=== PATIENT | female | born 1945 | race Caucasian/White ===

== ENCOUNTER 2024-04-20 00:30 | Emergency (ER) | payer OTHER ==
[~2024-04-20] VITALS: Ht 167.6 cm; Wt 81.6 kg
[~2024-04-20 00:30] MED LIST: ECOTRIN325 M1 PO; HYZAAR 100-121 UDTAB PO
[2024-04-20] MEDS ORDERED: METFORMIN HCL500 MG (00:44)
[2024-04-20] MEDS ORDERED: ONDANSETRON HCL 2 MG/ML VIAL IV STA (01:58)
[2024-04-20] MEDS ORDERED: FAMOTIDINE/PF 20 MG/2 ML VIAL IV PUSH STA (01:59)
[2024-04-20] MEDS ORDERED: LACTOBACILLUS ACIDOPHILUS 1 CAP CAP PO STA (01:59)
[2024-04-20] MEDS ORDERED: HYOSCYAMINE SULFATE 0.125 MG TAB.SUBL SL STA (01:59)
[2024-04-20] MEDS ORDERED: 0.9 % SODIUM CHLORIDE 1,000 ML IV ONE (02:00)
[2024-04-20 02:31] LABS: HEMATOCRIT 38.5 % (36.0-45.00); MEAN CELL VOLUME 91.2 fL (80.00-100.00); MEAN CORPUSCULAR HEMOGLOBIN 30.8 pg (27.00-32.0); MEAN CORPUSCULAR HGB CONC 33.8 g/dl (32.0-36.0); PLATELET COUNT 333 K/uL (150-450); RED BLOOD COUNT 4.23 M/uL (4.00-6.00); RED CELL DISTRIBUTION WIDTH 13.4 % (11.5-14.5)
[2024-04-20 02:52] LABS: CREATININE SERUM 0.62 mg/dL (0.55-1.02); GFR 92.62; POTASSIUM 3.59 mEq/L (3.5-5.1)
[2024-04-20] MEDS ORDERED: DIPHENOXYLATE HCL/ATROPINE 1 UDTAB TABLET PO ONE (10:15)
== END 2024-04-20 11:26 | disposition home or self-care (01) ==
LOC: ER 00:30
PROVIDERS: General Practice
DX: Z90.49 Acquired absence of other specified parts of digestive tract (principal); R11.10 Vomiting, unspecified; R19.7 Diarrhea, unspecified; I10 Essential (primary) hypertension; E11.9 Type 2 diabetes mellitus without complications; Z79.84 Long term (current) use of oral hypoglycemic drugs; Z88.2 Allergy status to sulfonamides
CPT/HCPCS: 36415; 96365; 96366; 99282; J2405; J3490; J7030

== ENCOUNTER 2024-07-22 06:52 | Inpatient (IN) | payer OTHER ==
[~2024-07-22] VITALS: Ht 157.5 cm; Wt 52.2 kg
[~2024-07-22 06:52] MED LIST changes: +METFORMIN HCL500 MG
--- NOTE | 2024-07-22 07:06 | NUR ---
SE RECIBE PTE EN AMBULANCIA ALERTA Y ACTIVA EN COMPANIA DE PARAMEDICOS Y FAMILIAR. REFIEREN TRAER A PTE POR QUE ESTA HIPOACTIVA E HIPOTENSA. TAMBIEN REFIEREN DEBILIDAD. AL MOMENTO DE TRIAGE BP 120/50 MMHG. SE REALIZA EKG, DXT SE PRESENTAA . SE ALLAN SV Y SE UBICA .
[2024-07-22] MEDS ORDERED: 0.9 % SODIUM CHLORIDE 500 ML IV ONE (08:15)
--- NOTE | 2024-07-22 08:56 | NUR ---
SE LE ORIENTA A PACIENTE SOBRE LA ORDEN MEDICA, REFIERE ENTENDER LAS MISMAS. SE CANALIZA Y SE LE COLOCA EL IVF'S, SE LE TOMNA LAS MUETRAS Y SE LE ADMINISTRAN LOS MEDICAMENTOSS EHUN LA ORDEN MEDICA.
[2024-07-22 09:02] LABS: MEAN CELL VOLUME 86.2 fL (80.00-100.00); MEAN CORPUSCULAR HGB CONC 32.6 g/dl (32.0-36.0); PLATELET COUNT 522 K/uL (150-450); RED BLOOD COUNT 2.66 M/uL (4.00-6.00)
[2024-07-22 09:17] LABS: HEMATOCRIT 22.9 % (36.0-45.00); HEMOGLOBIN 7.5 g/dL (12.0-15.00); MEAN CORPUSCULAR HEMOGLOBIN 28.1 pg (27.00-32.0); RED CELL DISTRIBUTION WIDTH 16.2 % (11.5-14.5)
[2024-07-22 09:22] LABS: PH,URINE 5.5 (5.0-8.0); URINE APPEARANCE Turbid; URINE BILIRRUBIN Negative (NEGATIVE); URINE BLOOD Moderate; URINE COLOR Dark Yellow; URINE GLUCOSE Negative (NEGATIVE); URINE KETONE Negative (NEGATIVE); URINE LEUKOCYTE Large; URINE NITRATE Positive; URINE PROTEIN 30 (NEGATIVE); URINE UROBILINOGEN 0.2 E.U./dl
[2024-07-22 09:23] LABS: URINE EPITHELIAL CELLS 6.9 uL (0.0-38.8); URINE RBC 14.5 uL (0.0-20.8)
[2024-07-22 09:27] LABS: BILIRUBIN TOTAL 0.37 mg/dL (0.3-1.2); CALCIUM 8.6 mg/dL (8.5-10.1); CREATININE SERUM 1.17 mg/dL (0.55-1.02); GFR 44.39; POTASSIUM 4.15 mEq/L (3.5-5.1)
[2024-07-22 09:39] LABS: URINE BACTERIA > 9821.5 uL (0.0-1933); URINE CAST 0.88 uL (0.0-1.40); URINE WBC > 5548.3 uL (0.0-23.2)
[2024-07-22] MEDS ORDERED: CEFTRIAXONE SODIUM 1,000 MG VIAL ONE (10:13)
[2024-07-22] MEDS ORDERED: CEFTRIAXONE SODIUM 1,000 MG VIAL IV ONE (10:15)
--- NOTE | 2024-07-22 12:29 | NUR ---
SE REQUISAN 2 UNITS DE PRBC'S PARA TRANFUNDIR, SE LE ORIENTA A PACIENTE Y SE LE ORIENTA SOBRE EL PROCESO.
[2024-07-22] MEDS ORDERED: 0.9 % SODIUM CHLORIDE 1,000 ML IV SCH ×2 (12:45→17:45)
[2024-07-22] MEDS ORDERED: DEXTROSE 50 % IN WATER 0.5 G/ML DISP.SYRIN IV PRN ×2 (12:45→14:30)
[2024-07-22] MEDS ORDERED: CEFTRIAXONE SODIUM 1,000 MG VIAL IV NR (14:30)
[2024-07-22 15:22] VITALS: BP 94/50; O2SAT 98
[2024-07-22] MEDS ORDERED: FAMOtidine 20 MG TABLET PO SCH (17:00)
[2024-07-22 17:14] VITALS: BP 90/44
[2024-07-22] MEDS ORDERED: MEROPENEM 500 MG/VIAL VIAL IV SCH (18:15)
[2024-07-22] MEDS ORDERED: NOREPINEPHRINE BITARTRATE 4 MG in DEXTROSE 5 % IN WATER 250 ML IV SCH (18:30)
[2024-07-22 20:00] VITALS: BP 94/46; O2SAT 100
[2024-07-22] MEDS ORDERED: INSULIN GLARGINE,HUM.REC.ANLOG 1,000 UNITS/10 ML UNITS SUBCUTANEO SCH (21:00)
[2024-07-22] MEDS ORDERED: VANCOMYCIN HCL 1,000 MG VIAL IV ONE (22:00)
[2024-07-22 23:41] VITALS: BP 111/47; O2SAT 100
[2024-07-23 04:20] VITALS: BP 100/42; O2SAT 99
[2024-07-23 07:21] VITALS: BP 100/61; O2SAT 100
[2024-07-23] MEDS ORDERED: CEFTRIAXONE SODIUM 1,000 MG VIAL IV SCH (09:00)
[2024-07-23] MEDS ORDERED: CEFTRIAXONE SODIUM 2,000 MG VIAL IV SCH (09:00)
[2024-07-23] MEDS ORDERED: FAMOtidine 20 MG TABLET PO SCH (09:00)
[2024-07-23 10:13] LABS: HEMATOCRIT 26.1 % (36.0-45.00); MEAN CELL VOLUME 83.4 fL (80.00-100.00); MEAN CORPUSCULAR HGB CONC 32.8 g/dl (32.0-36.0); RED BLOOD COUNT 3.12 M/uL (4.00-6.00)
[2024-07-23] MEDS ORDERED: CHLORHEXIDINE GLUCONATE 120 ML BOTTLE TOP ONE (10:26)
[2024-07-23 10:37] LABS: CALCIUM 8.3 mg/dL (8.5-10.1); CREATININE SERUM 1.12 mg/dL (0.55-1.02); GFR 46.69; POTASSIUM 4.93 mEq/L (3.5-5.1)
[2024-07-23 11:00] LABS: MEAN CORPUSCULAR HEMOGLOBIN 27.2 pg (27.00-32.0)
[2024-07-23 11:01] LABS: HEMOGLOBIN 8.5 g/dL (12.0-15.00)
[2024-07-23 11:02] LABS: PLATELET COUNT 367 K/uL (150-450); RED CELL DISTRIBUTION WIDTH 16.4 % (11.5-14.5)
[2024-07-23 12:00] VITALS: BP 103/55; O2SAT 100
[2024-07-23 13:35] LABS: HEMATOCRIT 24.8 % (36.0-45.00); MEAN CELL VOLUME 82.2 fL (80.00-100.00); MEAN CORPUSCULAR HEMOGLOBIN 26.8 pg (27.00-32.0); MEAN CORPUSCULAR HGB CONC 32.6 g/dl (32.0-36.0); PLATELET COUNT 377 K/uL (150-450); RED BLOOD COUNT 3.02 M/uL (4.00-6.00); RED CELL DISTRIBUTION WIDTH 17.2 % (11.5-14.5)
[2024-07-23 13:37] LABS: HEMOGLOBIN 8.1 g/dL (12.0-15.00)
[2024-07-23 15:51] VITALS: BP 105/53; O2SAT 100
[2024-07-23] MEDS ORDERED: CHOLESTYRAMINE/ASPARTAME LIGHT 4 G/PKT PACKET PO SCH (17:00)
[2024-07-23 20:00] VITALS: BP 102/49; O2SAT 100
[2024-07-24] VITALS (8 sets, daily range): BP systolic 115–155; BP diastolic 51–97; O2SAT 100
[2024-07-24 07:36] LABS: HEMATOCRIT 23.7 % (36.0-45.00); MEAN CELL VOLUME 81.3 fL (80.00-100.00); MEAN CORPUSCULAR HEMOGLOBIN 27.3 pg (27.00-32.0); MEAN CORPUSCULAR HGB CONC 33.6 g/dl (32.0-36.0); PLATELET COUNT 354 K/uL (150-450); RED BLOOD COUNT 2.92 M/uL (4.00-6.00); RED CELL DISTRIBUTION WIDTH 16.5 % (11.5-14.5)
[2024-07-24 08:21] LABS: CALCIUM 8.5 mg/dL (8.5-10.1); CREATININE SERUM 0.48 mg/dL (0.55-1.02); GFR 124.13; POTASSIUM 3.85 mEq/L (3.5-5.1)
[2024-07-24] MEDS ORDERED: MEROPENEM 500 MG/VIAL VIAL IV SCH (18:00)
[2024-07-25 04:00] VITALS: BP 172/78; O2SAT 100
[2024-07-25 08:10] VITALS: BP 180/73; O2SAT 100
[2024-07-25 12:09] LABS: HEMATOCRIT 28.9 % (36.0-45.00); HEMOGLOBIN 9.5 g/dL (12.0-15.00); MEAN CELL VOLUME 83.9 fL (80.00-100.00); MEAN CORPUSCULAR HEMOGLOBIN 27.6 pg (27.00-32.0); MEAN CORPUSCULAR HGB CONC 32.8 g/dl (32.0-36.0); PLATELET COUNT 324 K/uL (150-450); RED BLOOD COUNT 3.45 M/uL (4.00-6.00); RED CELL DISTRIBUTION WIDTH 16.3 % (11.5-14.5)
[2024-07-25 14:11] VITALS: BP 153/87; O2SAT 97
[2024-07-25 16:00] VITALS: BP 169/76; O2SAT 100
[2024-07-25 20:00] VITALS: BP 140/64; O2SAT 99
[2024-07-26] VITALS: BP 140/64; O2SAT 99
[2024-07-26 04:19] VITALS: BP 150/72; O2SAT 98
[2024-07-26 09:36] VITALS: BP 159/64; O2SAT 98
[2024-07-26 16:00] VITALS: BP 164/63; O2SAT 99
[2024-07-26] MEDS ORDERED: CEFTRIAXONE SODIUM 2,000 MG in 0.9 % SODIUM CHLORIDE 100 ML IV SCH (17:00)
[2024-07-26] MEDS ORDERED: ACYCLOVIR 400 MG TABLET PO SCH (17:00)
[2024-07-26 20:57] VITALS: BP 154/67; O2SAT 99
[2024-07-27] VITALS (8 sets, daily range): BP systolic 151–192; BP diastolic 69–93; O2SAT 98–100
[2024-07-27 07:07] LABS: CREATININE SERUM 0.38 mg/dL (0.55-1.02); GFR 162.54; POTASSIUM 3.04 mEq/L (3.5-5.1)
[2024-07-27 07:08] LABS: HEMATOCRIT 29.6 % (36.0-45.00); HEMOGLOBIN 10.1 g/dL (12.0-15.00); MEAN CELL VOLUME 83.2 fL (80.00-100.00); MEAN CORPUSCULAR HEMOGLOBIN 28.4 pg (27.00-32.0); MEAN CORPUSCULAR HGB CONC 34.1 g/dl (32.0-36.0); PLATELET COUNT 339 K/uL (150-450); RED BLOOD COUNT 3.56 M/uL (4.00-6.00); RED CELL DISTRIBUTION WIDTH 16.5 % (11.5-14.5)
[2024-07-27] MEDS ORDERED: POTASSIUM BICARBONATE/CIT AC 25 MEQ TABLET.EFF PO SCH (09:00)
[2024-07-27] MEDS ORDERED: CHLORHEXIDINE GLUCONATE 120 ML BOTTLE TOP ONE (10:29)
[2024-07-27] MEDS ORDERED: ENALAPRILAT DIHYDRATE 1.25 MG/ML VIAL IV STA (11:51)
[2024-07-27 12:21] LABS: ob POSITIVE (NEGATIVE)
[2024-07-27] MEDS ORDERED: LOSARTAN/HYDROCHLOROTHIAZIDE 1 TAB TABLET PO NR (12:30)
[2024-07-27] MEDS ORDERED: FUROsemide 20 MG/2 ML VIAL IV NR (13:45)
[2024-07-27] MEDS ORDERED: SODIUM CHLORIDE 0.45 % 1,000 ML IV SCH (17:15)
[2024-07-27] MEDS ORDERED: hydrALAZINE HCL 20 MG VIAL IV PRN (17:15)
[2024-07-28] VITALS: BP 177/70; O2SAT 96
[2024-07-28 05:11] VITALS: BP 153/77; O2SAT 97
[2024-07-28 07:07] LABS: CREATININE SERUM 0.3 mg/dL (0.55-1.02); GFR 213.51
[2024-07-28 07:21] LABS: POTASSIUM 2.63 mEq/L (3.5-5.1)
[2024-07-28] MEDS ORDERED: LOSARTAN/HYDROCHLOROTHIAZIDE 1 TAB TABLET PO SCH (09:00)
[2024-07-28] MEDS ORDERED: POTASSIUM CHLORIDE 20MEQ/100ML H2O PB IV SCH (09:00)
[2024-07-28] MEDS ORDERED: LOSARTAN POTASSIUM 100 MG TABLET PO SCH (09:00)
[2024-07-28] MEDS ORDERED: 0.9 % SODIUM CHLORIDE 1,000 ML IV SCH (09:15)
[2024-07-28 12:00] VITALS: BP 167/93
[2024-07-28 16:52] VITALS: BP 143/57; O2SAT 98
[2024-07-28] MEDS ORDERED: ACYCLOVIR TOP SCH (17:00)
[2024-07-28] MEDS ORDERED: MAGNESIUM SULFATE IN WATER 2 GM/50 ML PIGGYBAG IV NR (19:00)
[2024-07-29 01:57] VITALS: BP 146/77
[2024-07-29 07:04] LABS: HEMATOCRIT 28.4 % (36.0-45.00); HEMOGLOBIN 9.6 g/dL (12.0-15.00); MEAN CELL VOLUME 84.9 fL (80.00-100.00); MEAN CORPUSCULAR HEMOGLOBIN 28.7 pg (27.00-32.0); MEAN CORPUSCULAR HGB CONC 33.8 g/dl (32.0-36.0); PLATELET COUNT 379 K/uL (150-450); RED BLOOD COUNT 3.35 M/uL (4.00-6.00); RED CELL DISTRIBUTION WIDTH 15.9 % (11.5-14.5)
[2024-07-29 07:11] LABS: CALCIUM 7.9 mg/dL (8.5-10.1); CREATININE SERUM 0.26 mg/dL (0.55-1.02); GFR 251.85; POTASSIUM 3.51 mEq/L (3.5-5.1)
[2024-07-29 08:36] VITALS: BP 149/73
[2024-07-29] MEDS ORDERED: MUPIROCIN 22 GM OINT..GM TUBE TOP SCH (17:00)
[2024-07-29 20:17] VITALS: BP 150/63; O2SAT 98
[2024-07-30 02:11] VITALS: BP 145/69
[2024-07-30 09:28] VITALS: BP 176/84
== END 2024-07-30 15:09 | disposition home or self-care (01) | DRG 871 ==
LOC: ER 06:52 → ICU 13:29 → SEC-K 13:29 → MEDJ 13:29 → ICU 19:57 → MEDJ 07-28 14:47
PROVIDERS: General Practice; ADMIT Student in an Organized Health Care Education/Training Program; ATTEND Student in an Organized Health Care Education/Training Program
PROC: BW21ZZZ Computerized Tomography (CT Scan) of Abdomen and Pelvis (ICD-10-PCS; principal; 2024-07-22)
PROC: 4A12X4Z Monitoring of Cardiac Electrical Activity, External Approach (ICD-10-PCS; 2024-07-22)
PROC: 02HV33Z Insertion of Infusion Device into Superior Vena Cava, Percutaneous Approach (ICD-10-PCS; 2024-07-22)
PROC: 30233N1 Transfusion of Nonautologous Red Blood Cells into Peripheral Vein, Percutaneous Approach (ICD-10-PCS; 2024-07-22)
PROC: 0T2BX0Z Change Drainage Device in Bladder, External Approach (ICD-10-PCS; 2024-07-24)
PROC: BW21ZZZ Computerized Tomography (CT Scan) of Abdomen and Pelvis (ICD-10-PCS; 2024-07-26)
PROC: BW2GYZZ Computerized Tomography (CT Scan) of Pelvic Region using Other Contrast (ICD-10-PCS; 2024-07-28)
PROC: BB24ZZZ Computerized Tomography (CT Scan) of Bilateral Lungs (ICD-10-PCS; 2024-07-28)
PROC: 3C1ZX8Z Irrigation of Indwelling Device using Irrigating Substance, External Approach (ICD-10-PCS; 2024-07-28)
DX: A41.9 Sepsis, unspecified organism (principal); R57.8 Other shock; R65.21 Severe sepsis with septic shock; N39.0 Urinary tract infection, site not specified; N17.8 Other acute kidney failure; J90 Pleural effusion, not elsewhere classified; N32.0 Bladder-neck obstruction; R31.0 Gross hematuria; D64.89 Other specified anemias; R33.0 Drug induced retention of urine; R19.09 Other intra-abdominal and pelvic swelling, mass and lump; N36.8 Other specified disorders of urethra; N32.89 Other specified disorders of bladder; B00.1 Herpesviral vesicular dermatitis; E87.6 Hypokalemia; D72.823 Leukemoid reaction; I12.9 Hypertensive chronic kidney disease with stage 1 through stage 4 chronic kidney disease, or unspecified chronic kidney disease; E11.9 Type 2 diabetes mellitus without complications; N18.9 Chronic kidney disease, unspecified; B96.20 Unspecified Escherichia coli [E. coli] as the cause of diseases classified elsewhere; Z79.84 Long term (current) use of oral hypoglycemic drugs

== ENCOUNTER 2024-08-06 15:25 | Emergency (ER) | payer OTHER ==
[~2024-08-06] VITALS: Ht 162.6 cm; Wt 68.0 kg
[2024-08-06 15:29] VITALS: BP 160/72; O2SAT 98
[2024-08-06] MEDS ORDERED: CEFTRIAXONE SODIUM 1,000 MG VIAL IM ONE (16:00)
[2024-08-06] MEDS ORDERED: CEFTRIAXONE SODIUM 1,000 MG VIAL ONE (16:09)
== END 2024-08-06 19:04 | disposition home or self-care (01) ==
LOC: ER 15:25
DX: T83.9XXA Unspecified complication of genitourinary prosthetic device, implant and graft, initial encounter (principal); E11.9 Type 2 diabetes mellitus without complications; I10 Essential (primary) hypertension; Z88.6 Allergy status to analgesic agent
CPT/HCPCS: 51702; 96372; 99282; J0696

== ENCOUNTER 2024-08-21 10:25 | Outpatient (CLI) | payer OTHER | END 2024-08-21 10:26 | disposition home or self-care (01) | LOC: TOM 10:25 | PROVIDERS: ATTEND Student in an Organized Health Care Education/Training Program | DX: R31.0 Gross hematuria (principal) | CPT/HCPCS: 72193; Q9965 ==

== ENCOUNTER 2024-09-09 11:36 | Emergency (ER) | payer OTHER ==
[~2024-09-09] VITALS: Ht 157.5 cm; Wt 59.0 kg
[2024-09-09] MEDS ORDERED: TAMSULOSIN HCL0.4 MG PO (11:45)
[2024-09-09] MEDS ORDERED: 0.9 % SODIUM CHLORIDE 1,000 ML IV SCH (12:30)
[2024-09-09] MEDS ORDERED: CEFTRIAXONE SODIUM 1,000 MG VIAL IV ONE (12:30)
[2024-09-09] MEDS ORDERED: CEFTRIAXONE SODIUM 1,000 MG VIAL ONE (12:38)
[2024-09-09 13:15] LABS: HEMATOCRIT 34.3 % (36.0-45.00); HEMOGLOBIN 11.1 g/dL (12.0-15.00); MEAN CELL VOLUME 89.9 fL (80.00-100.00); MEAN CORPUSCULAR HGB CONC 32.3 g/dl (32.0-36.0); PLATELET COUNT 413 K/uL (150-450); RED BLOOD COUNT 3.81 M/uL (4.00-6.00); RED CELL DISTRIBUTION WIDTH 18.1 % (11.5-14.5)
[2024-09-09 13:38] LABS: ALBUMIN 3.1 gm/dL (3.4-5.0); BILIRUBIN TOTAL 0.25 mg/dL (0.3-1.2); CALCIUM 9.7 mg/dL (8.5-10.1); CREATININE SERUM 0.45 mg/dL (0.55-1.02); GFR 133.72; GLOBULINA 3.7 G/DL (2.4-3.5); POTASSIUM 3.85 mEq/L (3.5-5.1); TOTAL PROTEIN 6.8 gm/dL (6.4-8.2)
[2024-09-09 14:21] LABS: URINE APPEARANCE Clear; URINE BILIRRUBIN Negative (NEGATIVE); URINE BLOOD Negative; URINE COLOR Yellow; URINE GLUCOSE Negative (NEGATIVE); URINE KETONE Negative (NEGATIVE); URINE LEUKOCYTE Negative; URINE NITRATE Negative; URINE PROTEIN Negative (NEGATIVE); URINE UROBILINOGEN 0.2 E.U./dl
[2024-09-09 14:25] LABS: URINE EPITHELIAL CELLS 1.4 uL (0.0-38.8); URINE WBC 3.7 uL (0.0-23.2)
[2024-09-09 14:35] LABS: URINE BACTERIA 3.6 uL (0.0-1933)
== END 2024-09-09 18:41 | disposition home or self-care (01) ==
LOC: ER 11:36
PROVIDERS: General Practice
DX: R31.9 Hematuria, unspecified (principal); Z88.2 Allergy status to sulfonamides; Z88.8 Allergy status to other drugs, medicaments and biological substances; E11.9 Type 2 diabetes mellitus without complications; Z79.84 Long term (current) use of oral hypoglycemic drugs
CPT/HCPCS: 51702; 76830; 96365; 96366; 99284; J0696; J7030